=== PATIENT | male | born 1945 | race Caucasian/White ===

== ENCOUNTER 2018-12-05 19:59 | Observation (INO) | payer MEDICARE, OTHER ==
[~2018-12-05] VITALS: Ht 188 cm; Wt 104.3 kg
[~2018-12-05 19:59] MED LIST: ALL DAY ALLERGY10 M3 PO; ALLERGY MEDICAT25 MG PO; AMLODIPINE BESYL5 MG PO; ATENOLOL50 MG PO; ATORVASTATIN CA40 MG PO; AUGMENTIN 875-1 EACH PO; BACTRIM DS TAB1 EACH PO; BENADRYL25 MG PO; BISACODYL10 MG PR; CERAVE453 GM TOP; CETAPHIL226 GM TOP; CLINDAMYCIN HC300 MG PO; CLOBETASOL PROP50 ML TOP; CORTIZONE-1028 GM TOP; COUMADIN3 MG PO; COUMADIN4 MG PO; CYCLOBENZAPRINE10 MG PO; DOXEPIN HCL25 MG PO; FISH OIL 1,0001 EAC5 PO; FLEET ENEMA133 ML PR; FLUOXETINE HCL20 MG PO; FUROSEMIDE40 MG PO; GLIPIZIDE ER5 MG PO; HYDROCORTISONE59 ML TOP; HYDROXYZINE HCL50 MG PO; JANUVIA100 MG PO; KEFLEX500 MG PO; LAMOTRIGINE100 MG PO; LEVAQUIN500 MG PO; LOVASTATIN20 MG PO; LUBRICANT EYE D10 ML OU; MACULAR HEALTH1 EACH PO; MACULAR VITAMI1 EACH PO; MAGNESIUM CITR296 ML PO; MAPAP325 MG PO; MEDI-LAXX TABL1 EACH PO; MEDIHONEY15 ML TOP; METFORMIN HCL500 M1 PO; MILK OF MA400 MG/5 M PO; NORCO 10-325 T1 EACH PO; OMEGA-31000 MG PO; POLYETHYLENE GL17 GM PO; POTASSIUM CHLO10 ME2 PO; PREDNISONE20 MG PO; PROZAC20 MG PO; QUININE SULFAT324 MG PO; ROBITUSSIN COU237 M2 PO; TERBINAFINE HC250 MG PO; TIZANIDINE HCL2 MG PO; TOPROL XL25 MG PO; TRIAMCINOLONE A15 G1 TOP; VALIUM5 MG PO; VITAMIN D31000 UNIT PO; VITAMIN D5000 UNIT PO; WARFARIN SODIU7.5 MG PO; WARFARIN SODIUM5 MG PO; ZESTRIL10 MG PO; [UNRECOGNIZED DRUG - OTHER] TOP
[2018-12-05] MEDS ORDERED: ELIQUIS5 MG PO (20:14)
[2018-12-05] MEDS ORDERED: LANTUS SOL100 UNIT/1 SUB-Q (20:15)
--- NOTE | 2018-12-05 23:01 | EKG ---
[facility] [address] [facility] [place] [address] Signed Atrial flutter with variable AV block RSR' or QR pattern in V1 suggests right ventricular conduction delay Nonspecific ST abnormality Prolonged QT Abnormal ECG No previous ECGs available Confirmed by TEJAS SOLIZ MD ([id number]) on 12/05/2018 11:01:00 PM Electronically Signed By: TEJAS SOLIZ MD 12/05/18 2301 PATIENT NAME: MARCIA MORALES Electrocardiogram DATE OF : 47 PHYSICIAN: TEJAS SOLIZ MD REPORT #: [id number] REPORT IS CONFIDENTIAL AND NOT TO BE RELEASED WITHOUT AUTHORIZATION
--- NOTE | 2018-12-06 01:48 | NUR ---
PATIENT ARRIVED FROM ER SHORTLY BEFORE MIDNIGHT. PATIENT IS WHEELCHAIR BOUND. 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 PATIENT LIKES TO DO THINGS FOR HIMSELF MUCH POSSIBLE. COMMODE WILL NEED TO COME TO THE BED SIDE AND HE WILL NEED ASSISTANCE WITH A URINAL. PATIENT IS A+O, BUT HAS PROBLEMS WITH SHORT TERM MEMORY AND IS SLOW TO RESPOND AT TIMES WITH SPEACH. RIGHT ARM RESTRICTED FOR LAB AND B/P, AND RIGHT HAND CONTRACTURED. PATIENT NOW TRYING TO SLEEP. ON TELE#1 AND IN A FLUTTER WITH PVC'S IN THE 70'S AT THIS TIME. PATIENT ABLE TO TURN HIMSELF IN BED. PATIENT JUST HAD SKIN GRAFTS TO BOTH FEET YESTERDAY WERE DRESSED BY . NURSING IS NOT SUPPOSED TO DO ANYTHING WITH THE DRESSINGS. 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
--- NOTE | 2018-12-06 03:21 | NUR ---
PATIENT UP TO USE THE URNIAL, 2P ASSIST STAND BY. PATIENT STOOD UP BY BED SIDE TO USE URNIAL INDEPENDENTLY.PATIENT IS BACK IN BED.
--- NOTE | 2018-12-06 05:42 | NUR ---
PATIENT HAS SLEPT SINCE HIS ADMISSION WAS FINISHED, EXCEPT FOR HAVING TO STAND TWICE TO USE THE URINAL. PATIENT REMAINS IN A FLUTTER ON THE TELE, OTHER VS STABLE. IV NS CONTINUES TO INFUSE AT 50MLS/HR. PATIENT BACK IN BED WATCHING TV. PATIENT IS VERY INDEPENDENT AND WILL WANT TO TRY AND DO MOST THINGS ON HIS OWN AND DOES VERY WELL EVEN THOUGH HE IS VERY LIMITED ON HIS RIGHT SIDE AND DOES NOT WANT YOU TO TOUCH HIS RIGHT EXTREMETIES BECAUSE IT CAUSES HIM PAIN.
--- NOTE | 2018-12-06 07:26 | NUR ---
RECIEVED BEDSIDE REPORT FROM CANDI CABA. PT IS SLEEPING SOUNDLY, BREATHING EVEN AND UNLABORED. NEW SKIN GRAFT, DR MORTON IS FOLLOWING. VOIDING WELL.
--- NOTE | 2018-12-06 08:33 | NUR ---
PT'S SISTER ARRIVED DURING ASSESSMENT TO GIVE ADDITONAL BACKGROUND ON SKIN GRAFTS AND HISTORY. PT DID NOT HAVE ANY SYSTEMIC SEDATION DURING SKIN GRAFTS, LOCAL ONLY. SKIN GRAFT COMES FROM PLACENTAL TISSUE. PT'S SISTER REPORTED THAT DURING EPISODE YESTERDAY, PT COULD HEAR, BUT COULD NOT ANSWER QUESTIONS. HE COULD NOT KEEP EYES OPEN LONG ENOUGH TO VISUALLY PROCESS INFORMATION. PT'S SISTER EXPRESSED FRUSTRATION ABOUT THE LENGTH OF TIME IT TOOK TO ADMIT THE PT AND THE NUMBER OF TIMES QUESTIONS WERE ASKED (ASSESSMENT AND HISTORY). RN DID SERVICE RECOVERY MUCH POSSIBLE. FAMILY WAS HAPPY WITH THE CARE PROVIDED BY NOC AND DAY SHIFT RNS, JUST FUSTRATED BY THE COMPUTER ISSUES.
[2018-12-06] MEDS ORDERED: METOPROLOL SUCC25 MG PO (09:49)
--- NOTE | 2018-12-06 11:01 | NUR ---
CALLED REPORT [facility] WILL BE EXPECTING PT TO RETURN VIA WHEELCHAIR VAN.
--- NOTE | 2018-12-06 12:54 | NUR ---
PT DISCHARGE TEACHING COMPLETE. DISCUSSED FOLLOW UP, WHEN TO CALL THE DR, AND WHAT TO LOOK FOR. REPORT CALLED TO CANDI RINALDI AT [facility].
== END 2018-12-06 11:33 ==
LOC: ED 19:59 → MS 20:01
PROVIDERS: ADMIT Internal Medicine
DX: R41.82 Altered mental status, unspecified (principal); R00.1 Bradycardia, unspecified; I48.92 Unspecified atrial flutter; I73.9 Peripheral vascular disease, unspecified; I48.91 Unspecified atrial fibrillation; I10 Essential (primary) hypertension; E78.5 Hyperlipidemia, unspecified; I69.921 Dysphasia following unspecified cerebrovascular disease; I69.951 Hemiplegia and hemiparesis following unspecified cerebrovascular disease affecting right dominant side; L97.929 Non-pressure chronic ulcer of unspecified part of left lower leg with unspecified severity; L97.919 Non-pressure chronic ulcer of unspecified part of right lower leg with unspecified severity; Z66 Do not resuscitate; Z88.1 Allergy status to other antibiotic agents; Z88.8 Allergy status to other drugs, medicaments and biological substances; Z79.02 Long term (current) use of antithrombotics/antiplatelets; Z79.4 Long term (current) use of insulin; Z79.899 Other long term (current) drug therapy
CPT/HCPCS: 51701; 71045; 80053; 81001; 83735; 84484; 85025; 93005; 93010; 99285-25; G0378; J7030

== ENCOUNTER 2019-07-18 22:13 | Emergency (ER) | payer MEDICARE, OTHER ==
[~2019-07-18] VITALS: Ht 188 cm; Wt 104.3 kg
[~2019-07-18 22:13] MED LIST changes: +ELIQUIS5 MG PO; +LANTUS SOL100 UNIT/1 SUB-Q; +METOPROLOL SUCC25 MG PO
[2019-07-18] MEDS ORDERED: JANUVIA100 MG PO (22:40)
[2019-07-18] MEDS ORDERED: BENADRYL25 MG PO (23:31)
[2019-07-19] MEDS ORDERED: TRIAMCINOLONE A15 GM TOP (06:31)
== END 2019-07-18 23:41 | disposition home or self-care (01) ==
LOC: ED 22:13
DX: L29.9 Pruritus, unspecified (principal); I11.0 Hypertensive heart disease with heart failure; I50.9 Heart failure, unspecified; Z86.73 Personal history of transient ischemic attack (TIA), and cerebral infarction without residual deficits; Z88.8 Allergy status to other drugs, medicaments and biological substances; Z88.1 Allergy status to other antibiotic agents; Z79.899 Other long term (current) drug therapy; E78.5 Hyperlipidemia, unspecified; Z79.4 Long term (current) use of insulin
CPT/HCPCS: 99283; Q0163

== ENCOUNTER 2022-03-29 07:48 | Emergency (ER) | payer MEDICARE, OTHER ==
[~2022-03-29] VITALS: Ht 188 cm; Wt 93.1 kg
[~2022-03-29 07:48] MED LIST changes: +TRIAMCINOLONE A15 GM TOP
[2022-03-29] MEDS ORDERED: DIAZEPAM5 MG PO (08:31)
[2022-03-29] MEDS ORDERED: LASIX20 MG PO (08:32)
--- NOTE | 2022-03-30 09:52 | EKG ---
[facility] [address] [place] [address] Signed Atrial fibrillation with slow ventricular response Abnormal ECG When compared with ECG of 05-DEC-2018 20:03, Atrial fibrillation has replaced Atrial flutter Vent. rate has decreased BY 28 BPM RSR' pattern in V1 is no longer present QT has shortened Confirmed by GARRETT BINGHAM MD ([id number]) on 03/30/2022 9:52:39 AM Electronically Signed By: GARRETT BINGHAM MD 03/30/22 0952 PATIENT NAME: MARCIA MORALES Electrocardiogram DATE OF : 47 PHYSICIAN: GARRETT BINGHAM MD REPORT #: [id number] REPORT IS CONFIDENTIAL AND NOT TO BE RELEASED WITHOUT AUTHORIZATION
== END 2022-03-29 14:05 | disposition short-term general hospital (02) ==
LOC: ED 07:48
DX: S72.141A Displaced intertrochanteric fracture of right femur, initial encounter for closed fracture (principal); I48.91 Unspecified atrial fibrillation; I11.0 Hypertensive heart disease with heart failure; I50.9 Heart failure, unspecified; E78.5 Hyperlipidemia, unspecified; Z86.73 Personal history of transient ischemic attack (TIA), and cerebral infarction without residual deficits; Z88.1 Allergy status to other antibiotic agents; Z91.048 Other nonmedicinal substance allergy status; Z79.84 Long term (current) use of oral hypoglycemic drugs; Z79.899 Other long term (current) drug therapy; Z20.822 Contact with and (suspected) exposure to COVID-19; W18.30XA Fall on same level, unspecified, initial encounter
CPT/HCPCS: 36415; 71045; 73552; 73590; 73630; 80053; 81001; 85025; 87502; 93005; 93010; 96361; 96374; 96375; 99285-25; C9803; J2060; J2405; J3010; J7040; U0003

== ENCOUNTER 2022-04-13 15:53 | Inpatient (IN) | payer MEDICARE, OTHER ==
[~2022-04-13] VITALS: Ht 188 cm; Wt 92.0 kg
[~2022-04-13 15:53] MED LIST changes: +DIAZEPAM5 MG PO; +LASIX20 MG PO
--- OUTSIDE RECORDS SUMMARY | 2022-04-13 15:54 | XMS ---
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 Physician Splicing Machine Operator Automatic Current PHONE: Unknown JON ALVAREZ Nurse Practitioner Current PHONE: Unknown STEVE JENSEN Nurse Practitioner Heath MARTINEZ PHONE: [phone] DANDRE [facility] Current PHONE: Unknown LOUANN [facility] Current PHONE: [phone] Betty has no Care Guidelines for this patient. [place] V[facility] COUNT (12 MO.) 1 [facility] 2 [facility] TOTAL 3 NOTE: Visits indicate total known visits. ED/UCC VISIT TRACKING (12 MO.) 04/13/2022 15:54 [facility] [place] TYPE: Emergency COMPLAINT: - NAUSEA 03/29/2022 14:47 [facility] [place] TYPE: Emergency DIAGNOSES: - Unspecified fall, initial encounter - Fracture of unspecified part of neck of right femur, initial encounter for closed fracture - HIP FRACTURE 03/29/2022 07:48 [facility] [place] TYPE: Emergency COMPLAINT: - GLF DIAGNOSES: - Contact with and (suspected) exposure to COVID-19 - Allergy status to other antibiotic agents - casey saw operator (current) use of oral hypoglycemic drugs - Fall on same level, unspecified, initial encounter - Unspecified atrial fibrillation - Hypertensive heart disease with heart failure - Other long lines operator (current) drug therapy - Hyperlipidemia, unspecified - Other nonmedicinal substance allergy status - Heart failure, unspecified - Personal history of transient ischemic attack (TIA), and cerebral infarction without residual deficits - Displaced intertrochanteric fracture of right femur, initial encounter for closed fracture INPATIENT VISIT TRACKING (12 MO.) 03/29/2022 14:47 [facility] [place] TYPE: Medical Surgical DIAGNOSES: - Fracture of unspecified part of neck of right femur, initial encounter for closed fracture - Unspecified fall, initial encounter [email or web address]
--- NOTE | 2022-04-13 21:50 | NUR ---
pt arived via stretcher from ed at this time, his sister meera his poa. pt is alert non verbal at this time.
--- NOTE | 2022-04-13 23:35 | NUR ---
CALLED TO REPORT PT HAVING INCREASED RESP RATE UP TO 40 BPM. HE IS TRY TO VERBALIZE BUT IS UNCLEAR, HE IS RESTLESS, GRIMACING, AGITATED. GAVE ORDER FOR FENTANYL 12.5-25MCG IV PRN START WITH 12.5MCG. WILL CONTINUE TO MONITOR.
--- NOTE | 2022-04-14 | NUR ---
WHEN CALLED, UPDATED ON PT CURRENT STATUS, INCREASED WORK OF BREATHING CONCERNS ABOUT RESP FAILURE. NEW ORDERS
--- NOTE | 2022-04-14 00:21 | NUR ---
PT ADMINISTERED ANOHTER 25MCG PER NEW ORDERS FROM DR.REDDY LEYVA, ALSO HAVE NEW ORDER FOR ATIVAN FOR ANXIETY AND AGITTION.
--- NOTE | 2022-04-14 00:53 | NUR ---
CALLED TO UPDATE OF PT CURRENT STATUS, AND CRITICAL LABS
--- NOTE | 2022-04-14 01:49 | NUR ---
PT RESTING IN BED, HE IS LESS RESTLESS AT THIS TIME, HE CONTINUES TO ELEVATED RESP RATE OF 25-30 BPM, HE DESATURATED TO 87% ON ROOM AIR NOW ON 2L OXYGEN N.C. AT THIS TIME.
--- NOTE | 2022-04-14 02:30 | NUR ---
ROUNDING ON PT, HE GAVE NEW ORDERS AND TALKED WITH THE SISTER AND POA LEANDER MONSALVE AT BEDSIDE. UPDATED ON LOW URINE OUT AT THIS TIME ONLY 20ML OVER LAST TWO HOURS.
--- NOTE | 2022-04-14 03:33 | NUR ---
kayexelate kwan administration device removed from rectum, pt has large amount of stool medication mix in depends, pt cleaned barrier cream applied, pt has rash and open abrasions, and decub area on buttocks, bloods when wiped. pt repositioned, he is noted to be more relaxed, no grimace at this time.
--- NOTE | 2022-04-14 05:13 | NUR ---
PT CHANGE OF LARGE LIQUID INCONT OF STOOL, BARRIER CREAM APPLIED. PT'S SISTER AT BEDSIDE. PT REPOSITIONED TO LEFT SIDE, ON ASSESSMENT HE IS MORE RELAXED WHILE POSITIONED OF HIS RIGHT SIDE AND WEIGHT OFF BUTTOCKS. WARM BLANKET APPLIED
--- NOTE | 2022-04-14 06:34 | NUR ---
PT RESTING IN BED, RELAXED POSITION. TALKED WITH LEANDER MONSALVE PT'S SISTER AND POA IN REGARDS TO PT AM LABS AND CONTINUED TREATMENT PLAN. CURRENTLY THERE IS NOT KAYEXELATE AVILABLE FOR 0600 DOSE. DOUBLING MACHINE OPERATOR CANDI MALAGON AWARE. NO NEW CONCERNS THIS AM, URINE OUT IS INSUFFICIENT, B/P SOFT, BLOOD SUGAR ELEVATED HAS BEEN UPDATED TO THESE ISSUES OVER SHIFT WELL CALLED WITH CRITICAL VALUES.
--- NOTE | 2022-04-14 08:18 | NUR ---
IN WITH PT FOR MORNING ASSESSMENT AND TO GIVE KAYEXALATE THAT WAS DUE. PT MOANS WITH ANY SORT OF MOVEMENT BUT DOES NOT RESPOND PURPOSEFULLY. KAYEXALATE GIVEN PER RECTUM, PT TOLERATES. DUE TO PTS GRIMACE AND MOAN, MEDICATED WITH 50 MCG OF FENTANYL. [facility] CARE COMPLETED. PT IS COLD WITH MOTTLED SKIN TO KNEES AND ELBOWS. BLANKETS REAPPLIED.
--- NOTE | 2022-04-14 09:36 | NUR ---
PTS BLOOD PRESSURE TRENDING DOWN. IN TO TAKE A MANUAL BLOOD PRESSURE. 78/38. CALL PLACED TO DR BINGHAM TO NOTIFY OF DECREASE IN URINE OUTPUT, DECREASE IN BLOOD PRESSURE AND INCREASE IN RESPIRATORY RATE. DR BINGHAM STATES THAT BECAUSE PTS BLOOD PRESSURE IS LOW HE WOULD LIKE HIM STARTED ON NOREPI SO THAT PT CAN SAFELY BE GIVEN DOSES OF ATIVAN FOR COMFORT. PTS SISTER IN ROOM IS OKAY WITH THAT PLAN. NOREPI STARTED AT 4 MCG/MIN WITH BLOOD PRESSURE OF 77/48(56). 1 MG OF ATIVAL GIVEN IV WELL.
--- NOTE | 2022-04-14 09:45 | NUR ---
REPORT RECIEVED FROM FRANCO CHRISTOPHER. PATIENT WAS STARTED ON LEVOPHED PRIOR TO THIS RN ARRIVING. FRANCO UPDATED MD BINGHAM OF PATIENTS CONDITION AND LIMITED URINE OUTPUT. PATIENT RESTING IN BED WITH PATIENTS SISTER AT THE BEDSIDE. PER REPORT PATIENT HAS A RIGHT SIDE GAVE. LIMITED URINE OUTPUT. PATIENT HAS BEEN APHASIC SINCE ADMIT. PATIENT RESTING COMFORTABLE AT THIS TIME.
--- NOTE | 2022-04-14 09:50 | NUR ---
WHILE HANGING NOREPI, PT NOTED TO HAVE POSSIBLE RIGHT SIDE GAZE. PT DOES NOT RESPOND TO VOICE. DOES RESPOND TO TOUCH, BUT DOES NOT CHANGE GAZE. REPORT GIVEN TO RUPA.
--- NOTE | 2022-04-14 10:40 | NUR ---
PATIENT RESTLESS AND NOTED TO HAVE A BM. PRN PAIN MEDICATION GIVEN TO ASSIST PATIENT WITH CLEANING AND TURNING. PATIENT TOLERATED WELL. OINTMENTS APPLIED. PATIENTS SISTER AT THE BEDSIDE AND UPDATED ON PLAN OF CARE. MD BINGHAM UPDATED PRIOR IN SHIFT OF PATIENTS CONDITION. PATIENT IS NOW ON LEVOPHED. WILL CONTINUE TO TITRATE NEEDED. NO OTHER NEEDS AT THIS TIME. WILL CONTINUE TO CLOSELY MONITOR.
--- NOTE | 2022-04-14 11:00 | NUR ---
MD BINGHAM ARRIVED TO UNIT. UPDATED ON PATIENTS CONDITION. PATIENT RESTING IN BED. PATIENT CONTINUING TO GO UP ON LEVOPHED GTT. MD BINGHAM IN TO SEE PATIENT AND TALK WITH PATIENTS SISTER.
--- NOTE | 2022-04-14 12:42 | NUR ---
IN TO GIVE PT HIS KAYEXALATE ENEMA. PTS BED SATURATED WTIH STOOL. BEDDING AND ATTENDS CHANGED. PT APPEARS TO BE QUITE PAINFUL WITH MOVEMENT. BLOOD PRESSURE 81/47 (58). TITRATED NOREPI UP TO 25 MCG/MIN AND GAVE PT 100 MCG OF FENTANYL AND 1 MG OF IV ATIVAN. PTS BLOOD PRESSURE REMAINS 83/49(61)
--- NOTE | 2022-04-14 13:00 | NUR ---
STAFF IN TO GIVE MEDICATIONS AND REPOSITION PATIENT.
--- NOTE | 2022-04-14 14:30 | NUR ---
PATIENT REPOSITIONED WITH 2 STAFF SUPPORT. PATIENT RESTING IN BED. PRN MEDICATIONS GIVEN FOR COMFORT. THIS RN IN AT PATIENTS BEDSIDE EVERY 15-30 MINUTES FOR MEDICATION INTERVENTIONS. PATIENTS SISTER HAS REMAINED AT THE BEDSIDE. FOOD PROVIDED FOR SISTER. PATIENT HAS CONTINUED TO BE APHASIC THROUGHOUT THE DAY AND UNABLE TO COMMUNICATE WITH STAFF. PATIENT DOES OCCASIONALLY OPEN HIS EYES AND LOOK AROUND. PER MD LEAVE LEG WRAP IN PLACE. NO OTHER NEEDS AT THIS TIME. WILL CONTINUE TO CLOSELY MONITOR.
--- NOTE | 2022-04-14 16:36 | NUR ---
I WAS CALLED AND ADVISED THAT FAMILY WAS REQUESTING PRAYER. PT WAS NONVERBAL WHEN I ARRIVED. SISTER WAS PRESENT AND APPEARED CALM. SHE REQUESTED I PRAY WITH PT. PT RESPNDED VERBALLY AT THE END OF THE PRAYER. PROVIDED SPIRITUAL CARE TO SISTER.
--- NOTE | 2022-04-14 17:36 | EKG ---
[facility] [address] [facility] [place] [address] Signed Sinus bradycardia Nonspecific ST abnormality Prolonged QT Abnormal ECG When compared with ECG of 29-MAR-2022 09:23, Sinus rhythm has replaced Atrial fibrillation QRS duration has increased QT has lengthened Confirmed by GARRETT BINGHAM MD ([id number]) on 04/14/2022 5:36:31 PM Electronically Signed By: GARRETT BINGHAM MD 04/14/22 1736 PATIENT NAME: MARCIA MORALES Electrocardiogram DATE OF : 47 PHYSICIAN: GARRETT BINGHAM MD REPORT #: [id number] REPORT IS CONFIDENTIAL AND NOT TO BE RELEASED WITHOUT AUTHORIZATION
--- NOTE | 2022-04-14 17:49 | NUR ---
PATIENT CLEANED AFTER RECTAL MEDICATIONS ADMINISTERED. BEDDING CHANGED. PATIENT RESTING IN BED AT THIS TIME. PRN MEDICATIONS GIVEN FOR COMFORT. PATIENT IS RESTING AT THIS TIME. PATIENTS HR IS SLOWLY TRENDING UP THROUGHOUT THE DAY. PATIENT ON 32 OF LEVOPHED AT THIS TIME. VASOPRESSIN GTT IS AT A CONTINUOUS RATE. PATIENTS BLOOD SUGAR IS CHECKED EVERY HOUR AND TITRATED NEEDED. PATIENTS LABS DONE. MD BINGHAM NOTIFIED OF CRITICAL LABS, SEE EMARBreann ABRAHAM UPDATED ON CONTINUED LOW URINE OUTPUT. PATIENTS SISTER AT THE BEDSIDE AND DENIES ANY NEEDS AT THIS TIME. WILL CONTINUE TO CLOSELY MONITOR.
--- NOTE | 2022-04-14 18:40 | NUR ---
REVIEWED PLAN OF CARE. WITH PATIENTS SISTER. UPDATED ON CARES. PATIENTS SON SHOULD BE HERE TOMMORW AROUND 1PM. UPDATED MD BINGHAM. WILL CONTINUE TO CLOSELY MONITOR.
--- NOTE | 2022-04-14 18:43 | NUR ---
MD BINGHAM NOTIFIED OF LABS AND RE-RUN LABS. PATIENTS BLOOD SUGAR WAS ELEVATED ON LABS D/T THE LEVOPHED AND VASPOPRESSIN CONTINUING DURING LAB DRAW. THIS RN IS DOING EVERY 1 HOUR BLOOD SUGARS FOR PATIENT. WILL CONTINUE TO CLOSELY MONITOR.
--- NOTE | 2022-04-14 19:06 | NUR ---
UPDATED MD BINGHAM THAT PATIENTS BLOOD SUGAR IS 245. PER MD STAY IN SAME COLUMN AND NOTIFY CLINICAL LABORATORY AIDES TEACHER STAFF TO FOLLOW TREND.
--- NOTE | 2022-04-14 19:30 | NUR ---
REPORT RECEIVED FORM NIA CHRISTOPHER. IN TO LOOK AT PT, PT IS RESTING IN BED, EYES OPEN AT TIMES. SISTER IN ROOM, PLAN OF CARE DISCUSSED WITH SISTER. PT APPEARS COMFORTABLE AT THIS TIME.
--- NOTE | 2022-04-14 21:00 | NUR ---
PT HAS HAD 3 EPISODES OF INCONTINENT STOOL SINCE SHIFT CHANGE. GIVEN 100MCG IV FENTANYL FOR PAIN. TITRATING INSULIN DRIP PER PROTOCOL, LEVOPHED AND VASOPRESSIN HAVE NOT NEEDED TO BE TITRATED AT THIS TIME.
--- NOTE | 2022-04-15 | NUR ---
HAVE BEGUN TITRATING LEVOPHED DRIP DOWN.
--- NOTE | 2022-04-15 01:49 | NUR ---
DR BINGHAM CALLED UNIT FOR UPDATE, ORDER TO KEEP TOTAL IVF AT 150ML/HR.
--- NOTE | 2022-04-15 02:25 | NUR ---
PT INC STOOL, ATTENDS CHANGED AND PT REPOSITIONED. LEVOPHED DRIP CONTINUES TO BE TITRATED DOWNWARDS.
--- NOTE | 2022-04-15 05:15 | NUR ---
PT SEEMS TO BE MOANING SOME, REPOSITIONED, ATTENDS CHANGED, LABS DRAWN. 100MCG IV FENTANYL GIVEN FOR PT COMFORT.
--- NOTE | 2022-04-15 08:05 | NUR ---
PT HAS HAD LEVOPHED DRIP TITRATED DOWN TO 6MCG/MIN, CONTINUES ON VASOPRESSIN DRIP AND INSULIN DRIP PER PROTOCOL WITH BLOOD SUGARS IN THE 200 RANGE. HAS HAD APPROX 6 LOOSE BOWEL MOVMENTS THROUGH THE NIGHT, JERICA AREA EXCORIATED, BARRIER CREAM APPLIED, AWAITING POWDER FROM FORENSIC SOCIAL WORKER. URINE OUTPUT HAS INCREASED QUITE A BIT THROUGH THE NIGHT WELL. PT HAS BECOME MORE RESPONSIVE THROUGH THE NIGHT, NOW LOOKING AROUND MORE AND APPEARS TO BE ATTEMPTING TO COMMUNICATE, DOES MOUTH THE WORD "NO" TO HIS SISTER AT ONE POINT. PT WAS GIVEN 100MCG IV FENTANYL X2 THROUGH THE NIGHT FOR PAIN. HR 80'S, EKG JUST DONE SHOWS AFLUTTER, LAST BP 107/64 MAP (76). SISTER HAS REMAINED IN ROOM THROUGH THE NIGHT. AWAITING SON TO ARRIVE THIS AFTERNOON.
--- NOTE | 2022-04-15 08:40 | NUR ---
CARE OF PATIENT RESUMED BY THIS RN. PT RESTING IN BED UPON INITIAL ASSESSMENT WITH EYES OPEN, TRACKING STAFF IN ROOM SOME, BUT NOT INTERACTIVE. PT'S SISTER LEANDER MONSALVE IN ROOM AND ATTENTIVE TO PATIENT. SHE STATES SHE FEELS HE HAS HAD A BM. PT WAS CHANGED AND NEW ATTENDS AND NYSTATIN POWDER APPLIED TO BILATERAL GROIN AREA, AND BARRIER CREAM APPLIED TO BOTTOM. PT CURRENTLY ON LEVOPHED AT 6 MCG/MIN, BUT THIS WAS INCREASED TO 8 MCG/MIN DUE TO LAST BP BEING 81/51 (58). SODIUM BICARB INFUSING AT 110 ML/HR, VASOPRESSING INFUSING AT 0.3 UNITS/HR AND INSULIN CURRENTLY AT 1.2 UNITS/HR. CBG AT 0800 WAS 178. EKG DONE FOR RHYTHM CHANGE IT APPEARS PT IS NOW IN AFLUTTER, HR 70-80s. PLAN OF CARE DISCUSSED WITH PATIENT AND HIS SISTER. PT'S SON MARITZA SHOULD BE ARRIVING TODAY FROM OUT OF TOWN. MIDLINE/PICC LINE TO BE POTENTIALLY PLACED TODAY.
--- NOTE | 2022-04-15 10:36 | NUR ---
PATIENT TURNED TO LEFT SIDE AT THIS TIME. LEVOPHED NOW INFUSING AT 5 MCG/MIN AND VASOPRESSIN IS AT 0.02 UNITS/HR. PT'S SISTER REMAINS IN ROOM AND ATTENTIVE TO PATIENT. DISCUSSED WITH PATIENT AND HIS SISTER THAT A PICC LINE WILL HAPPEN TODAY. LAST BP 95/59 (70). CONTINUE TO TITRATE OFF TOLERATED.
--- NOTE | 2022-04-15 11:39 | NUR ---
DR. BINGHAM IN ROOM TO SEE PATIENT AT THIS TIME. PLAN OF CARE BEING DISCUSSED. PT REMAINS NON VERBAL BUT DOES SLIGHTLY NOD HEAD YES/NO TO THINGS. PT REMAINS ON ROOOM AIR AND SP02 IS CURRENTLY 91%. PT BEING REPOSITIONED TO SUPINE FOR PICC LINE PLACEMENT. URINE CONTINUES TO BE MUCH IMPROVED FROM YESTERDAY. LEG WRAP ON LEFT LEG D/C PER DR. BINGHAM. PT HAS A CHRONIC WOUND ON INNER LEFT ANKLE BONE THAT IS WELL HEALING AT THIS TIME, NO OPEN AREA. VASOPRESSIN NOW AT 0.1 UNITS/HR PER DR. BINGHAM AND WILL BE TURNED OFF AT 1210.
--- NOTE | 2022-04-15 14:22 | NUR ---
EMEMA COMPLETE. ANTIFUGAL POWDER APPLIED TO RIGHT AXILLARY AREA AND GROIN AREA. PATIENT POSITIONED ON LEFT SIDE. SISTER AND SON ARE AT BEDSIDE
--- NOTE | 2022-04-15 14:51 | NUR ---
PICC INSERTION NOTE: ASKED BY DR. BINGHAM TO EVALUATE PATIENT FOR POTENTIAL PICC LINE PLACEMENT. AFTER REVIEWING THE CHART AND DISCUSSING WITH PATIENT'S SISTER, PATIENT IS UNABLE TO COMMUNICATE AT THIS TIME DUE TO CONDITION, NO ABSOLUTE CONTRAINDICATIONS WERE IDENTIFIED. PATIENT'S SISTER SIGNED CONSENT FORM FOR PATIENT FOR PICC LINE. PATIENT'S RIGHT ARM WAS EVALUATED FIRST, THIS BEING HIS ARM THAT WAS AFFECTED MOST BY HIS CVA THAT WAS MANY YEARS AGO. PT'S BASILIC AND BRACHIAL VEINS WERE EASILY IDENTIFIED, WITH THE BASILIC BEING THE BEST CHOICE. AFTER PREPPING THE PATIENT'S ARM FOLLOWING CDC RECOMMENDED STERILE TECHNIQUE, THE PATIENT'S BASILIC WAS ACCESSED EASILY ON THE SECOND ATTEMPT, AND DARK, NON PULSATILE BLOOD WAS RETURNED. THIS BLOOD RETURN WAS NOT BRISK USUALLY SEEN, AND A FLUSH WAS ATTACHED TO CATHETER TIP. IV SITE FLUSHED EASILY AND THEN PULLED BACK BLOOD WITH EASE. GUIDEWIRE WAS THEN ADVANCED EASILY INTO THE VEIN, FOLLOWED BY THE INTRODUCER OVER THE GUIDEWIRE, THEN AFTER REMOVING INNER CANNULA OF INTRODUCER, THE PICC LINE WAS ADVANCED WITH EASE. [employer] TIP MAGNET WAS USED TO LOCATE THE TIP WHILE THE CATHETER WAS ADVANCED, AND SHOWED OPTIMAL PLACEMENT INTO THE CENTRAL VASCULATURE. 3CG TECHNOLOGY WAS UTILIZED, BUT THE PATIENT REMAINS IN AFLUTTER AND INVERSION OF P WAVES WAS NOT ABLE TO BE SEEN. PICC WAS LEFT WITH 3 CM EXPOSED AND A CHEST XRAY TAKEN. FIRST CHEST XRAY SHOWED THE PICC TO BE TOO DEEP, AND IT WAS PULLED BACK 2 CM. SECOND CHEST XRAY TAKEN, AND PATIENT NOW HAS 5 CM EXPOSED. STERILE DRESSING WAS APPLIED. BOTH LUMENS OF PICC FLUSHING AND ASPIRATING BLOOD EASILY. DR. BINGHAM LOOKED AT CHEST XRAY AND GAVE APPROVAL FOR PICC LINE TO BE USED. PT TOLERATED PROCEDURE WELL. EDUCATION MATERIAL LEFT IN PATIENT'S ROOM FOR PATIENT'S SISTER, AND ENCOURAGED TO ASK QUESTIONS THEY ARISE.
--- NOTE | 2022-04-15 15:12 | NUR ---
DR. BINGHAM IN ROOM AT THIS TIME DISCUSSING PATIENT'S CONDITION WITH HIS SON, WHO ARRIVED AROUND 1330, AND WITH PATIENT'S SISTER. PT CURRENTLY ON 5 MCG/MIN OF LEVOPHED, AND SODIUM BICARB AT 130 ML/HR. PT REMAINS ON AFIB/FLUTTER 70-80s. PT RECENTLY HAD KAYEXELATE ENEMA BUT HAS NOT HAD ANY FURTHER BMs YET. CONTINUE TO MONITOR CLOSELY.
--- NOTE | 2022-04-15 16:34 | NUR ---
PATIENT HAD INCONTINENCE OF LARGE LIQUID BROWN BM AFTER KAYEXELATE ENEMA WAS GIVEN EARLIER. THIS WAS CHANGED AND BARRIER CREAM REAPPLIED, NYSTATIN POWDER TO GROIN AREA, AND THOROUGH CATH CARE PROVIDED. PT'S LINENS WERE CHANGED WELL. PT TOLERATED FAIRLY WELL, BUT DOES SEEM UNCOMFORTABLE WHEN WE ARE MOVING/CHANGING HIM. PT'S SON MARITZA NOW BACK IN ROOM AND RESTING - WARM BLANKETS, WATER, AND PILLOWS PROVIDED. PT'S SISTER HAS LEFT AND STATES SHE WILL RETURN AT 0000 TO SEE PATIENT AGAIN. ASSESSMENT COMPLETE. PT ON 1 L NC AND SP02 IS 97%. CONTINUE TO MONITOR.
[2022-04-15] MEDS ORDERED: VITAMIN B-121000 MC1 PO (17:10)
[2022-04-15] MEDS ORDERED: JARDIANCE25 MG PO (17:11)
[2022-04-15] MEDS ORDERED: TRULICITY4.5 MG/0.5 SUB-Q (17:12)
[2022-04-15] MEDS ORDERED: FLUOXETINE HCL40 MG PO (17:13)
[2022-04-15] MEDS ORDERED: LISINOPRIL20 MG PO (17:14)
[2022-04-15] MEDS ORDERED: MICONAZOLE NITR15 GM TOP (17:15)
--- NOTE | 2022-04-15 18:15 | NUR ---
PATIENT TURNED AND REPOSITIONED AGAIN AT 1800. 2ND LARGE LIQUID BM NOTED IN ATTENDS WHICH WAS CHANGED. BARRIER CREAM AND A&D TO BUTTOCKS - NYSTATIN TO GROIN. PT MADE A TOTAL OF 1225 ML OF URINE FOR THIS SHIFT OF URINE. PT'S SONREMAINS IN ROOM. LEVOPHED CURRENTLY AT 3 MCG/MIN. CBG CHECKS REMAIN AT Q4 HRS, NEXT DUE AT 2200. PT REMAINS IN AFLUTTER.
--- NOTE | 2022-04-15 20:45 | NUR ---
blood drawn for 2000 labs at this time. pt resting quietly in bed eyes closed, rr 18 bpm. no distress noted, his son cherise is resting in recliner beside the bed.
--- NOTE | 2022-04-15 21:30 | NUR ---
PT CLEANED FOR LARGE INCONT OF STOOL, HIS SON IS OUT OF ROOM TO MAKE PHONE CALLS. RX DESITIN POWDER AND BARRIER CREAM COVERED OVER ALL AREAS OF BUTTOCKS AND JERICA SCROTAL AREA, SKIN SHOWS SOME IMPROVEMENT FROM ADMIT, LESS RED.
--- NOTE | 2022-04-15 21:34 | NUR ---
GIGI BINGHAM NOTIFIED OF CRITICAL LAB. CALCIUM OF 6.4. NEW FLUID ORDERS RECEIVED.
--- NOTE | 2022-04-16 00:49 | NUR ---
PT RESTING IN BED, RELAXED POSITION. PT NOTED TO HAVE INTERMITTEN HICCUPS, RESOLVES IN A FEW MINUTES. PT IS NOTED TO HAVE OCCASSIONAL COUGH THAT IS MOIST, SECRETIONS IN UPPER AIRWAY THAT HE IS ABLE TO MOVE WITH COUGH. SISTER LEANDER MONSALVE RESTING ON COUCH IN PT'S ROOM.
--- NOTE | 2022-04-16 04:15 | NUR ---
PT RESTING QUIETLY IN BED, NO DISTRESS NOTED, V/S STABLE WITH 4MCG/MIN LEVOPHED INFUSING. NO NEW CONCERNS AT THIS TIME.
--- NOTE | 2022-04-16 08:24 | NUR ---
IN PATIENT'S ROOM FOR ASSESSMENT. PT'S SISTER AND SON IN ROOM, UPDATE PROVIDED. PT ON 5 MCG/MIN OF LEVOPHED AND THIS WAS TURNED DOWN TO 4 MCG/MIN AFTER BP READS 102/51 (66). IV SITE D/C LEFT POSTERIOR FOREARM. PT REMAINS IN AFLUTTER 60s. IVF CONTINUE AT 125 ML/HR. HEEL PROTECTORS ON. PT ON ROOM AND SP02 IS 93%. LUNGS ARE CLEAR IN UPPER ANTERIOR LOBES, DIM IN BASES. PT SEEMS RESTFUL. PT AWAKENS EASILY TO VOICE, TRACKS WITH HIS EYES, BUT DOES NOT FOLLOW ANY COMMANDS AT THIS TIME. PUPILS EQUAL BILATERALLY AND REACTIVE TO LIGHT. [facility] DRAINING CLEAR YELLOW URINE. WILL CONTINUE TO MONITOR CLOSELY.
--- NOTE | 2022-04-16 08:30 | NUR ---
SPOKE WITH PATIENT SISTER LEANDER MONSALVE AND SON MARITZA WHO ARE AT THE BEDSIDE. FAMILY STATES THAT PATIENT IS LOOKING MUCH BETTER TODAY. PATIENT SISTER STATES PATIENT IS CURRENTLY AT [facility] FOR PT FOLLOWING A HIP FRACTURE. PATIENT SON AND SISTER WOULD LIKE THE PATIENT NOT TO RETURN TO [facility] IF ABLE. DISCUSSED OPTIONS FOR PLACEMENT TO A DIFFERENT SNF FACILITY OR POSSIBLY BACK TO [facility] IF POSSIBLE. PATIENT FAMILY WOULD LIKE TO SEE IF HE CONTINUES TO IMPROVE OVER THE NEXT 24 HOURS BEFORE CONTACTING [facility]. NO FURTHER NEEDS FROM THE FAMILY AT THIS TIME, WILL CONTINUE TO CHECK ON PATIENT DURING HIS STAY.
--- NOTE | 2022-04-16 10:51 | NUR ---
PATIENT REPOSITIONED TO RIGTH SIDE AND POSITIONED WITH PILLOWS BEHIND BACK. NEW ATTENDS PLACED - PT WAS CLEAN OF BM BUT DID HAVE SOME RESIDUAL. DESITIN AND A&D APPLIED LIBERALLY TO BUTTOCKS, NYSTATIN POWDER TO INNER GROIN AREA. PT'S FAMILY REMAINS IN ROOM. LEVOPHED REMAINS ON AT 2 MCG/MIN. URINE EMPTIED AT THIS TIME FOR 350 ML. IV ZOSYN INFUSING, AND D5 NS INFUSING WELL. CONTINUE TO MONITOR.
--- NOTE | 2022-04-16 11:17 | NUR ---
DR. BINGHAM IN ROOM TO SEE PATIENT. LEVOPHED TITRATED BACK UP TO 4 MCG/MIN DUE TO LOWER BPs. PLAN OF CARE BEING DISCUSSED WITH PATIENT'S FAMILY IN ROOM. CONTINUE TO MONITOR CLOSELY.
--- NOTE | 2022-04-16 11:28 | NUR ---
PATIENT WILL RECEIVE BLOOD TRANSFUSION TODAY. PT'S SISTER SIGNS CONSENT FORM FOR THIS. BLOOD TO BE DRAWN FROM PICC.
--- NOTE | 2022-04-16 12:51 | NUR ---
BLOOD TRANSFUSION STARTED AT 1248 PER ORDER. FIRST 15 MINUTES OF BLOOD STARTED AT 120 ML/HR TO INFUSE 30 ML OF BLOOD. INFUSION GOING THROUGH PICC LINE WITHOUT DIFFICULTY. OTHER IVF ON HOLD WHILE TRANFUSION OCCURING. LEVOPHED INFUSING AT 6 MCG/MIN STILL AT THIS TIME. WILL CONTINUE TO MONITOR CLOSELY.
--- NOTE | 2022-04-16 13:04 | NUR ---
PT TOLERATED FIRST 15 MIN OF BLOOD W/O COMPLICATION - BLOOD NOW INFUSING AT 125 ML/HR. PT'S SON MARITZA REMAINS IN ROOM.
--- NOTE | 2022-04-16 14:42 | NUR ---
BEDBATH GIVEN, FAIRBANKS CARE PROVIDED. LINEN GOWN AND BRIEF CHANGE. POWDER, A&D, AND DESITN APPLIED WHERE NEEDED IN JERICA AREA. PATIENT REPOSITIONED ONTO LEFT SIDE. CALL LIGHT IN EASY REACH. SON BACK IN ROOM AT THIS TIME.
--- NOTE | 2022-04-16 16:00 | NUR ---
ASSESSMENT COMPLETE. PT REPOSITIONED. BED BATH GIVEN WITH STORE COORDINATOR AND THIS RN AROUND THIS TIME. PT TOLERATED FAIRLY WELL, BUT IS UNCOMFORTABLE WITH BEING MOVED SOME. HEEL PROTECTORS REMAIN ON. LEVOPHED CONTINUES TO BE OFF AT THIS TIME. PT HAS BEEN MORE ALERT AND RESPONSIVE THIS AFTERNOON, ESPEICALLY TO HIS SON MARITZA. CONTINUE TO MONITOR.
--- NOTE | 2022-04-16 18:01 | EKG ---
[facility] [address] [place] [address] Signed Atrial flutter with variable AV block ST \T\ T wave abnormality, consider inferior ischemia Abnormal ECG When compared with ECG of 13-APR-2022 16:59, Atrial flutter has replaced Sinus rhythm Vent. rate has increased BY 35 BPM QRS duration has decreased ST now depressed in Inferior leads T wave inversion now evident in Inferior leads Nonspecific T wave abnormality now evident in Anterior leads Confirmed by GARRETT BINGHAM MD ([id number]) on 04/16/2022 6:00:56 PM Electronically Signed By: GARRETT BINGHAM MD 04/16/221800 PATIENT NAME: MARCIA MORALES Electrocardiogram DATE OF : 47 PHYSICIAN: GARRETT BINGHAM MD REPORT #: [id number] REPORT IS CONFIDENTIAL AND NOT TO BE RELEASED WITHOUT AUTHORIZATION
--- NOTE | 2022-04-16 18:28 | NUR ---
LEVOPHED WAS ABLE TO BE TITRATED OFF FROM AROND [id number], BUT THEN WAS TURNED BACK ON AT 4 MCG/MIN, TURNED DOWN TO 2 MCG/MIN AT 1815. WILL CONTINUE TO MONITOR. PT RESTING COMFORTABLY. IVF CONTINUE AT 125 ML/HR.
--- NOTE | 2022-04-16 20:43 | NUR ---
PT RESTIGN IN BED RELAXED POSITION, HICCUPS NOTED AT THIS TIME, PT'S SON MARITZA IS AT BEDSIDE, REVIEWED LABS, ASSESSMENT DONE URINE NOTED 400ML CLEAR YELLOW URINE IN FAIRBANKS COLECTION BAG. PT HAD LEVOPHED DRIP ON STANDBY, MONITOR CLOSE. NO NEW CONCERNS AT THIS TIME
--- NOTE | 2022-04-16 22:47 | NUR ---
CALLED IN REGARDS TO PT PAIN WITH ACTIVITY AND REPOSITIONING, DISCUSSED PAIN MANAGEMENT PLAN TO BALANCE B/P, LEVOPHED REMAINS ON STANDBY. 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 ALSO RECENT RIGHT HIP SURGERY POST PINNING.
--- NOTE | 2022-04-17 00:31 | NUR ---
ROUNDING IN PT ROOM FOR 0000, BLOOD DRAW, ALL INFUSIONS STOPPED, WASTED BLOOD 8ML AND THEN PULLED 5ML FOR LAB BMP. BRISK BLOOD RETURN, FLUSHED WITH 20ML NS AND THEN STARTED IV INFUSING WITH ABX. NO OTHER CONCERNS AT THIS TIME, PT'S SISTER IS RESTING ON THE COUCH.
--- NOTE | 2022-04-17 05:59 | NUR ---
pt repositioned, cleaned up of incont of large stool, liquid, he tolerated rolling in bed better this am, he noted to grmace and cry out when wiped to clean buttock and scrotal area due to raw open areas. pt now calm and relaxed. sister samuel houston at bedside, blood sent for am labs.
--- NOTE | 2022-04-17 08:10 | NUR ---
STITCHER STANDARD MACHINE. PATIENT RESTING IN BED COMFORTABLY. POSTION CHANGED TO SUPINE, MOUTH CARE COMPLETED. SISTER AND SON AT BEDSIDE. PATIENT DOES NOT APPEAR TO BE IN PAIN PER FACES SCALE. PERSONAL ITEMS AND CALL LIGHT WITHIN REACH, BUT IS GENERALLY USED BY FAMILY INSTEAD OF PATIENT FOR NEEDS. NO FURTHER NEEDS AT THIS TIME.
--- NOTE | 2022-04-17 09:00 | NUR ---
Spoke with pt's son, Aly. He states he aunt has gone home to sleep. She is the POA, but they do not want pt to return to [facility]. Let them know I can check if [facility] has a bed open as they are the only [facility] that take pt's requiring a 2 person assist or a ammy. He would still be considered above [facility] level of care as he is full assist. Per son, pt is unable to feed self or provide any self care. He is also a heavy lift. Son requests I contact [facility] to check for bed availability. Texted Summer and they have one bed open. Will send chart.
--- NOTE | 2022-04-17 09:06 | NUR ---
Patient sat up to 45 degrees in bed supine for nursing bedside swallow test. Patient continues to be drowsy; not able to follow commands or open eyes without stimulation. Bedside swallow test deferred until patient is more alert and able to follow commands.
--- NOTE | 2022-04-17 10:22 | NUR ---
PT evaluated patient without much success. Patient was able to say "good morning" once more awake. Per PT, patient unable to follow commands or do much for PT. At this time, PT will try again tomorrow if patient is more awake and able to follow commands. This nurse educated PT if patient was not able to participate, to complete passive range of motion with patient. Patient was repositioned to left side with RUE elevated with pillows.
--- NOTE | 2022-04-17 12:00 | NUR ---
Patient repositioned in bed to supine position with BUE elevated (right>left) due to swelling. Patient opens eyes with verbal and physical stimuli, but still has no interest in taking ice chips. Patient continues to speak small words ocassionally when prompted. Son, Aly, at bedside. No further needs at this time. Personal items and call light within reach for family.
--- NOTE | 2022-04-17 14:13 | NUR ---
Patient repositioned to left side, brief change, lamont care. Placed foam on coccyx due to open skin areas. Desiten cream put on red lamont areas and nystatin powder put on groin for redness. Overall perineal redness has improved greatly since admission. Patient tolerated turning well with minimal groan. Patient able to follow request to hold up head while changing pillow cases. Son at bedside. Personal items and call light witin reach of family. No further needs at this time.
--- NOTE | 2022-04-17 14:59 | NUR ---
Patient moving more in bed, attempting to reach for kwan catheter. Patient appeared to be uncomfortable. Catheter readjusted and pain medications given. Patient now resting more comfortably and no longer reaching for catheter or displaying facial grimacing. Will continue to monitor. Personal items and call light within reach. Sister and son at bedside.
--- NOTE | 2022-04-17 16:09 | NUR ---
PATIENT RESTING IN BED, REPOSITIONED TO SUPINE. PATIENT NOT PULLING AT CATHETER AT THIS TIME. FAMILY HAVE LEFT THE ROOM. PATIENT OPENS EYES TO VERBAL STIMULI. PATIENT ABLE TO SCRATCH HIS HEAD USING HIS LEFT ARM WITHOUT DIFFICULTY. PATIENT APPEARS COMFORTABLE WITH NO SIGNS OF PAIN OR DISTRESS. PERSONAL ITEMS AND CALL LIGHT WITHIN REACH. DOOR AND CURTAIN OPEN FOR EASIER MONITORING WHILE FAMILY HAS STEPPED OUT.
--- NOTE | 2022-04-17 18:05 | NUR ---
Patient has been relaxed and comfortable throughout shift. PRN pain medication only given once for mild groin irritation. Patient has been turned q2 hours with no distress. Patient has remained afebrile. Patient is also more awake during the day and able to speak single words at times. No BM today.
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
--- NOTE | 2022-04-17 20:17 | NUR ---
REPORT RECEIVED FROM DAY SHIFT RN. PT IS LYING IN BED W/ CALL LIGHT AT BEDSIDE. NO SIGNS OF DISTRESS. VSS. RESPIRATIONS EVEN AND UNLABORED.
--- NOTE | 2022-04-17 21:30 | NUR ---
PT'S SON IS SITTING AT BEDSIDE AT THIS TIME. PT REPOSITIONED W/ EXT ASSIST. FA[facility]BANKS PATENT. TOLERATING IVF. VSS. RESPIRATIONS EVEN AND UNLABORED. NO DISTRESS NOTED. CALL LIGHT AT HAND. WILL CONT TO MONITOR.
--- NOTE | 2022-04-18 00:09 | NUR ---
PT REPOSITIONED IN BED W/ EXT ASSIST. VSS. RESPIRATIONS EVEN AND UNLABORED. PRN PAIN MEDICATION ADMINISTERED- SEE EMAR FOR ADDITIONAL INFO. CALL LIGHT AT HAND. PT'S SISTER IS AT BEDSIDE AT THIS TIME. TOLERATING IVF AND ABX ORDERED. MAGDI PATENT. WILL CONT TO MONITOR.
--- NOTE | 2022-04-18 02:45 | NUR ---
PT RESTING IN BED W/ INCREASED RESTLESSNESS AND MOANING OUT. PRN PAIN MEDICATION ADMINISTERED ORDERED- SEE EMAR FOR ADDITIONAL INFO. VSS. RESPIRATIONS EVEN AND UNLABORED. CALL LIGHT AT HAND. PT'S SISTER REMAINS AT BEDSIDE THROUGHOUT THE NIGHT. FA[facility]BANKS PATENT W/ ADEQUATE OUTPUT. WILL CONT TO MONITOR.
--- NOTE | 2022-04-18 04:35 | NUR ---
PT IS RESTING IN BED AND APPEARS COMFORTABLE AT THIS TIME. REPOSITIONED W/ MAX ASSIST. CALL LIGHT AT HAND. FA[facility]BANKS PATENT. VSS. NO DISTRESS NOTED. WILL CONT TO MONITOR.
--- NOTE | 2022-04-18 06:13 | NUR ---
PT RESTING IN BED- APPEARS COMFORTABLE. LABS DRAWN. TOLERATING IVF. FA[facility]BANKS PATENT. NO SIGNS OF DISTRESS NOTED. VSS. RESPIRATIONS EVEN AND UNLABORED. CALL LIGHT WITHIN REACH. PT'S SON AND SISTER ARE AT BEDSIDE THIS AM. WILL CONT TO MONITOR.
--- NOTE | 2022-04-18 07:25 | NUR ---
REPORT RECEIVED, CARE OF PT ASSUMED AT THIS TIME.
--- NOTE | 2022-04-18 07:50 | NUR ---
SKY CAP IN ROOM AT THIS TIME TO SPEAK WITH PT'S SISTER.
--- NOTE | 2022-04-18 08:30 | NUR ---
ASSESS AND BED BATH COMPLETED. PT GROANS AND WINCES WITH TURNING. SKIN IN JERICA AREA AND COCCYX IMPROVED. CANDE ANY NYSTATIN APPLIED. PT REPOSITIONED ONTO LEFT SIDE. BLISTERS ON RIGHT ARM DRAINING CLEAR FLUID. ARMS ELEVATED ON PILLOWS. PT HAS GENERALIZED DEPENDENT EDEMA TO ARMS, LEGS AND THIGHS. LUNGS SOUND COARSE IN BILATERAL LUNG BASES. HEART RATE IN THE 80S AT REST. SISTER AT BEDSIDE. DISCUSSED PLAN OF CARE. ALL QUESTIONS ANSWERED. WILL CONTINUE TO MONITOR.
--- NOTE | 2022-04-18 09:04 | NUR ---
DR MORALES AT PT BESDIE AT THIS TIME TO COMPLETE ASSESSMENT AND DISCUSS PLAN OF CARE WITH PTS SISTER LEANDER. ALL QUESTIONS ANSWERED. PLAN OF CARE FOR DAY ESTABLILSHE.D IB FLUDIS AND ABX NOW INFUSING. PT OPENS EYES AND RESPONDS YES WHEN ASKED IF HE IS IN PAIN. PRN MEDICATION FOR PAIN TO BE ADMINISTERED. CALL LIGHT WITHIN REACH. SISTER REMAINS AT PT BEDSIDE. WILL CONTINUE TO MONITOR.
--- NOTE | 2022-04-18 09:36 | NUR ---
SPEECH THERAPIST IN ROOM AT THIS TIME TO DO SWALLOW EVALUATION.
--- NOTE | 2022-04-18 11:14 | NUR ---
PT REPOSITIONED ON TO RIGHT SIDE. PT APPEARS TO BE MORE COMFORTABLE AFTER RECIEVING PAIN MEDICATION. RESPIRATIONS EVEN AND UNLABORED. CALL LIGHT WITHIN REACH. WILL CONTINUE TO MONITOR.
--- NOTE | 2022-04-18 12:28 | NUR ---
PATIENT RESTING IN BED, WOKE TO VOICE. VITALS AND I&OS CHARTED. CALL LIGHT IN EASY REACH
--- NOTE | 2022-04-18 12:30 | NUR ---
Called and spoke with Jeny Laguna and [facility] as I sent pts chart yesterday. Both decline this pt as he will require more care than their staff can provide at this time. I called and spoke with Mary Willis and she knows this pt, but also states he will require more care than they can staff. Pt also has medicaid and cannot pay out of pocket. He will have to go to a facility that accepts medicaid.
--- NOTE | 2022-04-18 13:21 | NUR ---
PT ASLEEP, DID NOT DISTURB.
--- NOTE | 2022-04-18 14:00 | NUR ---
Called and spoke with [facility], asked if they would be willing to take this pt. She states only if pt is a 1 person assist and at baseline. They would also take this pt if he was hospice. I will speak with pts sister.
--- NOTE | 2022-04-18 14:47 | NUR ---
PT REPOSITIONED IN BED. CERAMICS ARTIST AT BEDSIDE SHAVING PT. PT'S SISTER AT BEDSIDE.
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
--- NOTE | 2022-04-18 16:24 | NUR ---
GLASS INSTALLER IN ROOM SPEAKING WITH PT'S DAUGHTER.
--- NOTE | 2022-04-18 16:40 | NUR ---
Attempted to contact hospice and they have closed for the day. Updated by Dr. Eugene he feels this pt is hospice appropriate. He will document and I will send the chart to hospice in the am.
--- NOTE | 2022-04-18 18:08 | NUR ---
PT BLOOD SUGAR WNL, NO INSULIN GIVEN. PT PROVIDED PAIN MEDICATION AND REPOSITIONED IN BED. SISTER REMAINS AT BEDSIDE. WILL CONTINUE TO MONITOR.
--- NOTE | 2022-04-18 19:20 | NUR ---
BEDSIDE REPORT FROM ADEEL CHRISTOPHER, PT'S SISTER LEANDER MONSALVE AT BEDSIDE, WE HAVE MET PRIOR OVER THE COURSE OF PT'S STAY THIS RN ADMITTED PT. SISTER SAID SHE FEELS GOOD ABOUT GOING HOME TO GET SOME SLEEP TONIGHT WITH CURRENT STAFF. NO NEW CONCERNS, SHE IS HOPEFUL THAT ST EVALUATION TOMORROW WILL SHOW IMPROVMENT. PT IS RESTING QUIETLY IN BED, EYES CLOSED, NO DISTRESS NOTED, RR REGULAR AT 18 BPM.
--- NOTE | 2022-04-18 23:27 | NUR ---
PT RESTING IN BED, NO DISTRESS NOTED, PT HAS RELAXED BODY POSITION, NO GRIMACE
--- NOTE | 2022-04-19 00:23 | NUR ---
PT REPOSITIONED, HE VERBALIZED "NO" WHEN ASKED IF HE HAD PAIN. PT RESTING IN RELAXED POSITION, NO NEW CONCERNS.
--- NOTE | 2022-04-19 01:17 | NUR ---
ROUNDING IN PT ROOM, PT RESTING IN BED ON LEFT SIDE, NO GRIMACE OR CRYING OUT, EYES CLOSED RR REGULAR AT 20 BREATHS. NO NEW CONCERNS
--- NOTE | 2022-04-19 02:22 | NUR ---
IN PT'S ROOM TO CHECK 0200 BLOOD SUGAR AND TO GIVE PAIN MEDS. PT SLEEPING, CBG LOW, 68. 25ML DEXTROSE GIVEN PER PRN ORDERS. PT CONTINUES TO SLEEP.
--- NOTE | 2022-04-19 04:36 | NUR ---
PT RESTIGN IN BED, EYES CLOSED, PT RELAXED POSITION, NO GRIMACE, BLOOD SUGAR CHECK AT THIS TIME SEE LABS
--- NOTE | 2022-04-19 06:03 | NUR ---
PT'S SISTER LEANDER MONSALVE ARRIVED TO PT ROOM AT THIS TIME. UPDATE PROVIDED, NO NEW ISSUES OR CONCERNS.
--- NOTE | 2022-04-19 07:30 | NUR ---
REPORT RECIEVED, CARE OF PT ASSUMED AT THIS TIME. PT RESTING IN BED. BREATHING EVEN AND UNLABORED. PT SISTER REMAINS AT BEDSIDE.
--- NOTE | 2022-04-19 08:15 | NUR ---
SPEECH THERAPIST IN ROOM FOR SECOND CONSULT. PT AGAIN FAILED SWALLOW EXAM.
--- NOTE | 2022-04-19 08:30 | NUR ---
CALL PLACED TO LIBERTY AT [facility]. LIBERTY STATES THEY HAVE AN HOSPICE OPENING FOR Saturday04/24/22. REFERRAL FAXED FOR REVIEW. NIA CHRISTOPHER UPDATE.
--- NOTE | 2022-04-19 09:00 | NUR ---
ASSESSMENT COMPLETED. AM CARES PROVIDED BY WING COVERER. PT REPOSITIONED IN BED. ORAL CARE PROVIDED. PT DENIES PAIN. URINE OUTPUT CONTNUES TO BE ADEQUATE. LUNGS SOUND DIMINISHED IN BILATERAL BASES. SPO2 = 94% ON ROOM AIR. PT DENIES PAIN. LONG ACTING INSULIN HELD AT THIS TIME FOR LOW BLOOD SUGARS DURING THE NOC. PLAN OF CARE FOR DAY ESTABLISHED. CALL LIGHT WITHIN REACH. WILL CONTINUE TO MONITOR.
--- NOTE | 2022-04-19 10:08 | NUR ---
HOSPICE CONSULT FOR THIS PATIENT. HE REMAINS NPO. RD WILL BE AVAILABLE IF NEEDED.
--- NOTE | 2022-04-19 10:33 | NUR ---
DR BALES IN ROOM TO ASSESS PT AT THIS TIME. PLAN ESTABLISHED MAKE PT A MED SURG PT AT THIS TIME.
--- NOTE | 2022-04-19 11:00 | NUR ---
MEET WITH PATIENT SISTER LEANDER MONSALVE. QUESTIONS ANSWERED REGARDING LOGISTIC OF RETURN THE PATIENT TO [facility], IF ACCEPTED BY HOSPICE. ADVISED THAT I WILL SPEAK WITH FABIOLA KAMINSKI REGARDING MOVING THE PATIENT CURRENT BED OUT OF HIS ROOM SO THAT A HOSPITAL BED CAN BE PLACED. DISCUSSED EVALUATION BY LOAN BROKER. NO FURTHER QUESTIONS FROM LEANDER MONSALVE AT THIS TIME. ADVISED CASE MANAGEMENT WILL ADVISE HER WHEN WE RECIEVE CONFIRMATION FROM [facility] AND [facility].
--- NOTE | 2022-04-19 11:33 | NUR ---
PT REPOSITIONED IN BED ONTO LEFT HIP. PT DOES NOT RESPOND WHEN ASKED IF HE IS IN PAIN, BUT DOES HAVE TEARS IN HIS EYES. LUNGS DIMINISHED IN BILATERAL LUNG BASES BUT WORK OF BREATHING AND SPO2 WNL. DAUGHTER BACK AT BEDSIDE. WILL CONTINUE TO MONITOR.
--- NOTE | 2022-04-19 15:22 | NUR ---
PATIENT REPOSITIONED ONTO RIGHT SIDE, PILLOWS SUPPORTING BOTH ARMS.
--- NOTE | 2022-04-19 15:45 | NUR ---
ASSESSMENT COMPLETED AND PT REPOSITIONED IN BED. NYSTATIN POWDER ON JERICA AREA. ARMS PLACED ON PILLOW TO HELP WITH EDEMA. WELL TOLERATED BY PT. NO REPORTS OF PAIN. ORAL CARE PROVIDED. WILL CONTINUE TO MONITOR.
--- NOTE | 2022-04-19 17:06 | NUR ---
ORAL CARE PROVIDED. PT DENIES PAIN. IV FLUIDS CONTINUE TO INFUSE.
--- NOTE | 2022-04-19 17:54 | NUR ---
PT GIVEN PRN PAIN MEDICATION. PT IS TEARFUL AND MOANING. STATES "YES" WHEN ASKED IF HE IS IN PAIN. 1 UNIT OF INSULIN GIVEN PER SLIDING SCALE. SISTER REMAINS AT PT BEDSIDE.
--- NOTE | 2022-04-19 22:06 | NUR ---
PT RESTING QUIELTY IN BED EYES CLOSED ALERT TO RN TALKING. HE IS RELAXED IN POSTURE, NO GRIMACE. NO NEW CONCERNS HIS ACCU CHECK 121, FENTANYL PATCH 12.5MCG PLACED TO LEFT CHEST NO NEW CONCERNS AT THIS TIME
--- NOTE | 2022-04-20 02:15 | NUR ---
PT RESTING IN BED SLEEPING/SNORING, PT ALERT TO RN AT BEDSIDE FOR BLOOD SUGAR CHECK, PT IS RELAXED POSITION NO GRAONING OR GRIMACE, ORAL CARE PROVIDED, PT REPOSITONED, NO NEW CONCERNS, V/S STABLE
--- NOTE | 2022-04-20 04:02 | NUR ---
PT RESTING IN BED EYES CLOSED NO DISTRESS NOTED, NONEW CONCERNS, RESP RATE 18 BREATHS/MIN. PT REPOSITIONED.
--- NOTE | 2022-04-20 07:17 | NUR ---
BEDSIDE REPORT RECEIVED FROM JONATHAN CHRISTOPHER, ALL QUESTIONS ANSWERED.
--- NOTE | 2022-04-20 07:30 | NUR ---
PT MOVED TO ROOM 122 VIA BED. FAMILY AT BEDSIDE. IV FLUIDS RUNNING. CALL LIGTH IN REACH.
--- NOTE | 2022-04-20 08:13 | NUR ---
SPOKE WITH MORENO AT [facility], PATIENT HAS BEEN ACCEPTED AND SCHEDULED FOR Saturday04/24/22.
--- NOTE | 2022-04-20 08:30 | NUR ---
MORNING ASSESSMENT COMPLETE. PT AWAKE, UNABLE TO ASSESS ORIENTATION. ANSWERS YES/NO TO SIMPLE QUESTIONS. PT TURNED TO LEFT SUPPORTED WITH PILLOWS. ARMS 3+ EDEMA, ELEVATED ON PILLOWS. RIGHT ARM BLISTERS AND WEEPING. PICC LINE INFUSING FLUSHED WITH 20ML NS, ARM CIRCUMFERENCE 31CM AT PICC INSERTION SITE. FENTANYL PATCH TO LEFT CHEST. DRESSING ON COCYXX CDI. FAIRBANKS DRAINING CLEAR YELLOW URINE. RIGHT SIDED WEAKNESS REPORTED BY SISTER CHRONIC FROM PAST CVA. CALL LIGHT IN REACH.
--- NOTE | 2022-04-20 09:55 | NUR ---
PATIENT LYING IN BED, BLODD SUGAR, VITALS AND I/O'S COMPLETED. SISTER IN ROOM, CALL LIGHT WITHIN REACH.
--- NOTE | 2022-04-20 10:00 | NUR ---
PT TURNED TO LEFT SIDE WITH PILLOWS AND TWO PERSON ASSIST. PILLOWS UNDER BOTH ARMS AND LEGS FOR COMFORT. SISTER AT BEDSIDE. CALL LIGHT IN REACH.
--- NOTE | 2022-04-20 11:20 | NUR ---
PT RESTING IN BED WITH EYES CLOSED, RESPIRATIONS EVEN AND UNLABORED. AWAKENS EASILY. STATES "NO" WHEN ASKED IF HE HAS PAIN.
--- NOTE | 2022-04-20 12:30 | NUR ---
PT RESTING QUIETLY IN BED, EYES CLOSED, AWAKENS EASILY. STATES "NO" WHEN ASKED IF HE HAD PAIN.
--- NOTE | 2022-04-20 14:12 | NUR ---
PATIENT RESTING IN BED COMFORTABLY. VITALS, BLOOD SUGAR, AND I/O'S COMPLETED. FAIRBANKS DRAINED AND DOCUMENTED. ROTATED ONTO LEFT SIDE. NO OTHER NEEDS AT THIS TIME. CALL LIGHT WITHIN REACH.
--- NOTE | 2022-04-20 14:41 | NUR ---
Pt resting in bed with eyes closed, awakens easily, denies pain at this time.
--- NOTE | 2022-04-20 15:22 | NUR ---
PT RESTING IN BED, AWAKENS EASILY. APPEARS COMFORTABLE, FLACC 0. FAIRBANKS DRAINING CLEAR YELLOW URINE. PICC LINE INFUSING.
--- NOTE | 2022-04-20 16:40 | NUR ---
PT RESTING IN BED WITH EYES CLOSED, RESPIRATIONS EVEN AND UNLABORED. AWAKENS EASILY. DENIES PAIN AT THIS TIME. BLISTERS TO RIGHT ARM WEEPING, MEAGAN CHANGED, ELEVATED ON PILLOWS.
--- NOTE | 2022-04-20 17:10 | NUR ---
PT RESTING WITH EYES CLOSED, AWAKENS EASILY. FLACC 0. SISTER AT BEDSIDE. CALL LIGHT IN REACH.
--- NOTE | 2022-04-20 18:29 | NUR ---
PT TURNED TO RIGHT SIDE. ARMS ELEVATED ON PILLOWS. VITAL AND I$O'S COMPLETED. PT AWAKENS TO VOICE AND WITH MOVEMENT. APPEARS COMFORTABLE AFTER TURNING, FLACC 0. SISTER AT BEDSIDE. CALL LIGHT IN REACH.
--- NOTE | 2022-04-20 19:40 | NUR ---
Patient sleeping in bed. Sister at bedside. Call light within reach. Bed alarm in place.
--- NOTE | 2022-04-21 00:48 | NUR ---
Patient sleeping in bed. Call light within reach. Bed alarm in place.
--- NOTE | 2022-04-21 04:01 | NUR ---
Uneventful shift. Unable to determine patient's orientation leve. Alert. Answers "yes, no" questions in whisper. Unable to follow most commands. Moves left limbs spontaneously. Unable to move right limbs. Repositioned w/assist of staff. On RA. Lung sounds dim in bases. Respirs unlabored, even. HR sounds reg. General +2 pitting edema. Fluid blisters on right arm. Some of these sites are open, weeping. Infusing fluids at rate of 85 through PICC. Able to draw back blood from PICC. Oral care completed w/repositiong. Appears to be in no discomfort. Has remained in bed. Bowel sounds active. Chowdhury patent. Draining dark yellow, clear urine.
--- NOTE | 2022-04-21 08:50 | NUR ---
RN IN ROOM TO ASSESS PT AND ADMINISTER SCHEDULED MEDICATIONS. PT REPOSISTIONED IN BED WITH BOTH ARMS ELEVATED ON PILLOWS. LEFT ARM DRAINING SMALL SEROUS FLUID FROM BLISTERS AND OPEN WEAPING AREAS. LEFT ARM PAINFUL WITH PASSIVE MOVEMENT TO REPOSISTION. ORAL CARE PROVIDED. FA[facility]KS CARE PROVIDED AND NYSTATIN POWDER APPLIED TO GROIN AND SCROTUM AREA - EXCORIATIONS IMPROVING. [facility] PATENT AND DRAINING CLEAR YELLOW URINE QUANITY SUFFICENT. HEEL PROTECTORS IN PLACE. PICC LINE TOLERATING IVF WITHOUT DIFFICULTY, SECOND LUMEN HEP LOCKED. PT STATES "YES" TO BEING COMFORTABLE UPON LEAVING ROOM. SISTER AT BEDSIDE.
--- NOTE | 2022-04-21 09:19 | NUR ---
PT BECKONING THIS RN PASSES ROOM. PT UNABLE TO VERBALIZE REQUEST BUT STATE "YES" WHEN ASKED IF HE IS HAVING PAIN. PT UNABLE TO STATE WHERE PAIN IS. 3/10 FLACC SCORE. SEE MAR FOR MEDICATION GIVEN. PT MAKING NOISES AND MOVEMENTS. NO ADDITIONAL NEEDS AT THIS TIME. BED RAILS UP. CALL LIGHT WITHIN REACH. PTS PRIMARY RN UPDATED.
--- NOTE | 2022-04-21 09:30 | NUR ---
RN ROUNDING ON PT - RESTING COMFORTABLY IN BED. PT COMPLAINED OF PAIN AROUND FA[facility]B[place]KS AREA TO OTHER RN AND PRN MORPHINE WAS NOTED TO BE ADMINISTERED ON EMAR.
--- NOTE | 2022-04-21 09:57 | NUR ---
SANJU from Dr. Branch to place order for urojet for penile discomfort due to kwan catheter. Will update primary RN.
--- NOTE | 2022-04-21 10:06 | NUR ---
PT IN BED RESTING. VITALS AND IS AND OS COMPLETE. NURSE ENTER IN ROOM. PATIENT REPOS ONTO LEFT SIDE. NO NEEDS. CALL LIGHT WITHIN REACH.
--- NOTE | 2022-04-21 10:09 | NUR ---
PT REPOSISTIONED TO LEFT SIDE, DENIES PAIN.
--- NOTE | 2022-04-21 11:33 | NUR ---
PT ASLEEP IN BED WITH HOB ELEVATED. RR EVEN AND UNLABORED. NO DISTRESS NOTED.
--- NOTE | 2022-04-21 11:35 | NUR ---
REPORT RECEIVED FROM NIGHT RN - PT RESTING IN BED AWAKE WITH SISTER AT BEDSIDE. STATES "YES" WHEN ASKED IF HE WAS COMFORTABLE. SISTER DENIES NEEDS AT THIS TIME.
--- NOTE | 2022-04-21 13:32 | NUR ---
RN ROUDNING ON PT - PT AWAKE IN BED, PUSHES RN AWAY UPON APPROACHING STATES "GET OUT OF HERE". PT INITIALLY ANSWERS "NO" WHEN ASKED IF IN PAIN, THEN LATER RESPONDS "YES" WHEN ASKED IF HE NEEDED PAIN MEDICATION. ORAL MORPHINE ADMINISTERED. FA[facility]KS CATH PATENT, LINE EMPTIED. IVF REPLACED, SITE WNL. PT NOW RESTING ASLEEP, RR EVEN AND UNLABORED.
--- NOTE | 2022-04-21 15:03 | NUR ---
pt repositioned to right side with pillows, skin care provided on back, alyvn on buttock c/d/i. no further skin breakdown noted. clean linen placed under. kwan patent but painful at insertion site, urojet used to provide relief - pt apears to be pulling on it.
--- NOTE | 2022-04-21 16:35 | NUR ---
RN IN ROOM TO ROUND ON PT - SISTER AT BEDSIDE. PT STATES "NO" WHEN ASKED IF IN PAIN. ORAL CARE PREFORMED. FAIRBANKS CATH REPOSITIONED TO DECREASE PRESSURE, UROJET APPEARS TO HAVE IMPROVED PAIN AT [facility].
--- NOTE | 2022-04-21 18:45 | NUR ---
PT REPOSISTIONED IN BED TO BACK. UROJET APPLIED TO FA[facility]BANKS AREA IN RESPONSE TO PT CONTINUING TO GRAB AT AREA WITH LEFT HAND. PT STATES "NO" WHEN ASKED IF HE NEEDS PAIN MEDICATION. SISTER AT BEDSIDE DENIES FURTHER NEEDS.
--- NOTE | 2022-04-21 20:00 | NUR ---
Patient appeared uncomfortable at shift report. Patient's sister alerted nurses to patient's discomfort. PRN roxicodone given. Patient now resting comfortably in bed.
--- NOTE | 2022-04-22 02:25 | NUR ---
Patient sleeping in bed. Bed alarm in place.
--- NOTE | 2022-04-22 06:57 | NUR ---
Uneventful shift. Patient responds in limited manner to questions. Mostly answers "yes, no" questions. Unable to determine orientation. Does not use call light. Remains very weak on left side, immobile on right side. Lungs dim in bases. On RA. Respirs even, unlabored. Bowel sounds hypoactive. No BM on shift. Has remained in bed. HR sounds irreg. Sister at bedside now. Pain has been well controlled w/PRN sublingual morphine.
--- NOTE | 2022-04-22 07:44 | NUR ---
IN ROOM TO RECHECK POC BLOOD GLUCOSE, LAB DRAW AT 0405 RESULT OF 495. POC BLOOD GLUCOSE AT THIS TIME 147. PT APPEARS TO BE RESTING COMFORTABLY, FLACC 0. SISTER AT BEDSIDE.
--- NOTE | 2022-04-22 09:05 | NUR ---
MORNING ASSESSMENT COMPLETE. PT PROVIDED PRN MORPHINE FOR FLACC OF 3 AND ANTICIPATION OF MORNING CARES. PT ABLE TO ANSWER SIMPLE YES OR NO QUESTIONS AT TIMES. ALERT AND AWAKE UPON ENTERING ROOM. UNABLE TO ASSESS ORIENTATION. PT TRACKS THIS RN WITH EYES. LUNG SOUNDS CLEAR ON RA, HYPOACTIVE BOWEL TONES. FA[facility]KS DRAINING CLEAR YELLOW URINE, QS. PICC LINE ARM CIRCUMFERENCE 31 CM, GOOD BLOOD RETURN AND FLUSHES EASILY. SISTER AT BEDSIDE, DENIES FURTHER NEEDS AT THIS TIME.
--- NOTE | 2022-04-22 10:48 | NUR ---
BED BATH, LINEN CHANGE, ORAL AND JERICA CARE PROVIDED AT THIS TIME.
--- NOTE | 2022-04-22 12:33 | NUR ---
Pt resting in bed with eyes closed, awakens easily. Appears comfortable, FLACC 0.
--- NOTE | 2022-04-22 13:45 | NUR ---
PT REPOSITIONED TO RIGHT SIDE WITH PILLOWS, ARM ELEVATED ON PILLOWS. PT TOLERATED MOVEMENT WELL, FLACC 0.
--- NOTE | 2022-04-22 15:57 | NUR ---
PT REPOSTITIONED, TOELRATED WELL, FLACC 0. BILATERAL ARM EDEMA, ELEVATED ON PILLOWS. BLISTERS ON RIGHT ARM OPEN AND WEEPING. SISTER AT BEDSIDE. CALL LIGHT IN REACH.
--- NOTE | 2022-04-22 17:56 | NUR ---
PICC LINE DRESSING CHANGED USING STERILE PROCEDURE. INSERTION SITE WNL, 5CM EXPOSED. PT TOLERATED WELL.
--- NOTE | 2022-04-22 19:10 | NUR ---
SHIFT REPORT RECIEVED FROM BERNIE CHRISTOPHER. PT RESTING IN BED. RR EVEN, UNLABORED. IV FLUIDS INFUSING PER ORDER. SISTER AT BEDSIDE. PT REPOSITIONED. NO NEEDS AT THIS TIME. CALL LIGHT IN REACH, RAILS UP.
--- NOTE | 2022-04-22 20:20 | NUR ---
ASSESSMENT COMPLETED. PT ORIENTED TO PERSON AND PLACE. LUNGS CLEAR, HEART TONES REGULAR, ABD SOFT, NONTENDER. PT HAS CHRONIC NUMBNESS X4 EXTREMITIES. PICC LINE WNL, FLUSHED WELL WITH GOOD BLOOD RETURN, IV FLUIDS INFUSING PER ORDER. SACRUM WOUNDS COVERED. RUE WOUNDS OPEN TO AIR. TRACE EDEMA IN BLE AND 3+ EDEMA IN BUE. SCHEDULED MEDS PROVIDED. ORAL AND [facility] CARE PROVIDED. NO OTHER NEEDS AT THIS TIME SISTER IN ROOM. RAILS UP, CALL LIGHT IN REACH, CURTAIN OPEN.
--- NOTE | 2022-04-22 23:00 | NUR ---
PT REPOSITIONED. NO OTHER NEEDS AT THIS TIME. CALL LIGHT IN REACH.
--- NOTE | 2022-04-22 23:10 | NUR ---
NEW BAG OF IV FLUIDS PROVIDED. PT REPOSITIONED. NO OTHER NEEDS AT THIS TIME. CALL LIGHT IN REACH.
--- NOTE | 2022-04-23 01:10 | NUR ---
PT APPEARS RESTLESS, PRN PAIN MED PROVIDED. PT REPOSITIONED. IV FLUIDS INFUSING PER ORDER. NO OTHER NEEDS. CALL LIGHT IN REACH, RAILS UP, CURTAIN OPEN.
--- NOTE | 2022-04-23 02:17 | NUR ---
SCHEDULED MED PROVIDED. ASSESSMENT COMPLETED, NO CHANGES. PT REPOSITIONED. NO OTHER NEEDS AT THIS TIME. CALL LIGHT IN REACH.
--- NOTE | 2022-04-23 03:59 | NUR ---
PT REPOSITIONED. IV FLUIDS INFUSING PER ORDER. PT RR EVEN, UNLABORED. CALL LIGHT IN REACH, CURTAIN OPEN.
--- NOTE | 2022-04-23 06:06 | NUR ---
VS AND I&O COMPLETED. ORAL AND FA[facility]KS CARE PROVIDED. PT MOANING AND RESTLESS, PRN PAIN MED PROVIDED. PT REPOSITIONED. NO OTHER NEEDS AT THIS TIME. CALL LIGHT IN REACH, RAILS UP, CURTAIN OPEN.
--- NOTE | 2022-04-23 07:02 | NUR ---
SCHEDULED MED PROVIDED. PT HAS A GURGLE DURING EXPIRATION AND HAS NOT BEEN ABLE TO CLEAR THE FLUIDS IN HIS THROAT WELL BUT DOES NOT APPEAR TO BE IN RESPIRATORY DISTRESS. SISTER IN ROOM. CALL LIGHT IN REACH.
--- NOTE | 2022-04-23 07:05 | NUR ---
Report received from Rivka CHRISTOPHER. Pt resting in bed with eyes closed. RR 20, no apparent distress, sister at bedside. Will continue plan of care. Call light in reach.
--- NOTE | 2022-04-23 08:44 | NUR ---
Scheduled medications administered and assessment complete. Pt resting in bed, increased secretions noted and SL atropine drops administered. PICC line WNL, cont. IVF infusing WNL, second port flushes well and brisk blood return noted. 3+ edema to BUE, skin weeping, arms elevated for comfort. Heel protectors in place, pillows repositioned under legs. Discussed POC with pt sister Natalee Hernandez, all questions answered.
--- NOTE | 2022-04-23 11:00 | NUR ---
BOTH NARES SWABBED FOR COVID-19 WITHOUT COMPLICATION.
--- NOTE | 2022-04-23 11:14 | NUR ---
Pt medicated with 5mg oral morphine, new bag IVF hung. Pt's sister requests to visit with MD when convenient. Oral care provided.
--- NOTE | 2022-04-23 12:00 | NUR ---
REPORT RECIEVED FROM CANDI WALLIS. PT APPEARS COMFORTABLE, RESTING WITH EYES CLOSED.
--- NOTE | 2022-04-23 13:22 | NUR ---
PT MOVED TO NEGATIVE PRESSURE ROOM PER PROTOCOL. PT SISTER IN ROOM.
--- NOTE | 2022-04-23 14:44 | NUR ---
TURNED PT WITH ASSISTANCE OF DALTON ZARAGOZA. PT MOANED BUT WAS ABLE TO VERBALIZED THAT IT WILL CALM DOWN AND HE DOES NOT NEED PAIN MEDS ATT. ALSO DECLINED ATROPINE DROPS FOR EXCESSIVE SECRETIONS. PROPPED EDEMATOUS ARM ON PILLOWS.
--- NOTE | 2022-04-23 16:00 | NUR ---
RECVD MESSAGE FROM FABIOLA AT [facility], STILL OKAY TO DISCHARGE PATIENT BACK ON HOSPICE THOUGH HE IS NOW COVID +. CONFIRMED THAT PATIENTS REGULAR BED HAS BEEN MOVED AND A HOSPITAL BED WILL BE DELIVERED IN THE AM. PATIENT SISTER LEANDER MONSALVE NOTIFIED OF ONGOING TRANSFER COORDINATION. SHE STATES SHE WILL BE HERE IN THE MORNING TO FOLLOW PATIENT BACK TO FACILITY. DR. SOLIZ NOTIFIED OF PLANS FOR DISCHARGE.
--- NOTE | 2022-04-23 16:37 | NUR ---
PT SISTER STATES THAT PT IS MOANING AND APPEARS PAINFUL.
--- NOTE | 2022-04-23 18:20 | NUR ---
PT SISTER THOUGHT HE WAS GETTING MORE GURGLY AND WAS NOT RESPONDING TO HER. ASSESSED PT AND HE RESPONDED APPROPRIATLY TO QUESTIONS. DID AGREE TO TAKE SOME ATROPINE DROPS FOR SECRETIONS. DENIES PAIN.
[2022-04-23] MEDS ORDERED: BENADRYL25 MG PO (19:00)
[2022-04-23] MEDS ORDERED: MORPHINE S100 MG/5 M SL (19:01)
[2022-04-23] MEDS ORDERED: FENTANYL1 EAC4 TD (19:02)
[2022-04-23] MEDS ORDERED: ATROPINE SULFATE2 ML SL (19:03)
--- NOTE | 2022-04-23 19:28 | NUR ---
REPORT RECEIVED FROM DAY SHIFT RN. PT LYING IN BED RESTING WITH EYES CLOSED. RESPIRATIONS EVEN. SISTER AT BEDSIDE. NO NEEDS AT THIS TIME. CALL LIGHT IN REACH.
--- NOTE | 2022-04-23 20:15 | NUR ---
PT MOANING IN BED WITH OCCASIONAL GRIMACE. PRN FOR PAIN ADMIN PER EMAR. PT MOSTLY NON VERBAL, ANSWERS "NO" TO SIMPLE QUESTIONS. FACE WASHED. ORAL CARE DONE. OCCASIONAL COUGH NOTED. PT ABLE TO CLEAR SECRETIONS AT THIS TIME. RR 20, EVEN AND NON LABORED. 2PA TO REPOSITION IN BED. PITTING EDEMA NOTED BUE. BOTH ARMS ELEVATED. WEEPING BLISTERS NOTED ON RIGHT ARM. HEEL PROTECTORS IN PLACE. [facility] PATENT WITH 300 ML CLEAR YELLOW URINE. [facility] CARE COMPLETE. SISTER LEFT FOR THE EVENING. CURTAIN OPEN SLIGHTLY FOR EASY OBSERVATION.
--- NOTE | 2022-04-23 23:28 | NUR ---
2229 ROUNDING NOTE. PT AWAKE IN BED RESPONDING TO SIMPLE QUESTIONS. REPEATS "PAIN PILL." PRN FOR PAIN ADMIN PER EMAR. FACE WASHED WITH WARM CLOTH AND ORAL CARE DONE. 2PA TO REPOSITION IN BED WITH PILLOWS. PT REPORTS HE IS COMFORTABLE. PICC LINE IN NAVEED PULSATILE FLUSH WITH NS AND HEP LOCKED PER ORDER. BRISK BLOOD RETURN NOTED IN BOTH LUMENS. BUE ELEVATED ON PILLOWS. CALL LIGHT IN REACH.
--- NOTE | 2022-04-24 01:32 | NUR ---
PT LYING IN BED WITH EYES OPEN MOANING SOFTLY. PRN FOR PAIN ADMIN PER EMAR. 2PA TO REPOSITION. PT MORE CONVERSIVE DURING CARES. SPEECH SLURRED. ORAL CARE DONE. PT DENIES FURTHER NEEDS. CURTAIN OPEN FOR OBSERVATION. CALL LIGHT IN REACH.
--- NOTE | 2022-04-24 02:42 | NUR ---
PT IN BED RESTING WITH EYES CLOSED. RESPIRATIONS EVEN. CURTAIN OPEN FOR OBS. CALL LIGHT IN REACH.
--- NOTE | 2022-04-24 04:37 | NUR ---
TWO PERSON ASSIST TO REPOSITION PT WITH PILLOWS. PT MOANING SOFTLY WITH OCCASIONAL GRIMACE. PRN FOR PAIN ADMIN PER EMAR. ORAL CARE COMPLETE.
--- NOTE | 2022-04-24 07:00 | NUR ---
PT AWAKE IN BED MOANING SOFTLY. 2PA TO REPOSITION IN BED WITH PILLOWS. PRN FOR PAIN ADMIN PER EMAR. ORAL CARE DONE. FACE WASHED. SISTER AT BEDSIDE AT THIS TIME. NO NEEDS. CALL LIGHT IN REACH.
--- NOTE | 2022-04-24 07:26 | NUR ---
REPORT FROM COLE ALVARENGA RN.
--- NOTE | 2022-04-24 07:58 | NUR ---
SPOKE W PTS SISTER IN [facility] OUTSIDE OF PT ROOM. SHE REQ DROPS TO HELP RELIEVE PTS COUGH. RN NOTIFIED.
--- NOTE | 2022-04-24 08:10 | NUR ---
Pt was unable to sign IMM letter due to his stroke. Stated understanding.
--- NOTE | 2022-04-24 08:30 | NUR ---
Called and confirmed with Dinora at [facility] they are aware pt is + with [facility] and she states they are and plan to take him back on Hospice today. Asked what time she would like to have pt and she states the bed will not be delivered until 10:00. I will call hospice and discuss with them and then schedule EMS transport. Spoke with Dr. Mosley and she will complete orders.
--- NOTE | 2022-04-24 08:40 | NUR ---
Called and spoke with Aicha from Hospice. Bed will arrive at 10:00 and their nurse will arrive at 10:00 also and will see pts until pt arrives. I will call and request EMS at 10:00 to transport.
--- NOTE | 2022-04-24 09:45 | NUR ---
Called and scheduled EMS transport for around 10:30. Nonemergent transport sheet completed and signed by Dr. Mosley. Orders for dc received from Dr. Mosley and faxed to
--- NOTE | 2022-04-24 10:01 | NUR ---
CATHETER CARE DONE, JERICA CARE DONE, ALLEVYN REMOVED FROM COCCYX, EXCORIATED COCCYX ARE CLEANED, NEW ALLEVYN IN PLACE. EXCORIATIONS ARE DRY AND APPEAR TO BE HEALING. PATIENT REPOSITIONED UP IN BED, ARMS ARE ELEVATED WITH PILLOWS AND NEW CHUX UNDER FOR ARM WEEPING. PATIENT IS TO BE TRANSPORTED BACK HOME TO [facility] AT 1030 BY NON-EMERGENT EMS. SISTER IS BACK IN ROOM AT THIS TIME, CASE MANAGEMENT HAS UPDATED THE SISTER.
--- NOTE | 2022-04-24 10:27 | NUR ---
REPORT TO LEONOR, NURSE AT [facility]
--- NOTE | 2022-04-24 10:40 | NUR ---
EMS here, called Dinora and let her know pt will arrive shortly. She received my faxed orders. Denies other needs. Hospice will provide a comfort kit.
--- NOTE | 2022-04-24 13:59 | NUR ---
I UNDERSTAND THAT PT IS TO BE DC'D TODAY BACK TO [facility]. WILL FOLLOW NEEDED
== END 2022-04-24 10:45 | disposition hospice, inpatient (51) | DRG 871 ==
LOC: ED 15:53 → CCU 15:55 → MS 04-15 12:08
PROVIDERS: ADMIT Internal Medicine; ATTEND Internal Medicine
PROC: 3E033XZ Introduction of Vasopressor into Peripheral Vein, Percutaneous Approach (ICD-10-PCS; 2022-04-15)
PROC: 02HV33Z Insertion of Infusion Device into Superior Vena Cava, Percutaneous Approach (ICD-10-PCS; 2022-04-15)
PROC: 3E03329 Introduction of Other Anti-infective into Peripheral Vein, Percutaneous Approach (ICD-10-PCS; principal; 2022-04-15 13:00)
DX: A41.9 Sepsis, unspecified organism (principal); N17.0 Acute kidney failure with tubular necrosis; G93.41 Metabolic encephalopathy; J18.9 Pneumonia, unspecified organism; U07.1 COVID-19; R65.21 Severe sepsis with septic shock; I48.92 Unspecified atrial flutter; Z51.5 Encounter for palliative care; Z66 Do not resuscitate; E87.5 Hyperkalemia; I10 Essential (primary) hypertension; R34 Anuria and oliguria; E78.5 Hyperlipidemia, unspecified; D64.9 Anemia, unspecified; F39 Unspecified mood [affective] disorder; E11.649 Type 2 diabetes mellitus with hypoglycemia without coma; Z86.73 Personal history of transient ischemic attack (TIA), and cerebral infarction without residual deficits; Z88.1 Allergy status to other antibiotic agents; Z88.8 Allergy status to other drugs, medicaments and biological substances; Z79.4 Long term (current) use of insulin; Z79.01 Long term (current) use of anticoagulants; Z79.899 Other long term (current) drug therapy
CPT/HCPCS: 36415; 36430; 36569; 51702; 71045; 80048; 80053; 81001; 82570; 83036; 83690; 84132; 84300; 84550; 85025; 86850; 86900; 86901; 86922; 87502; 93005; 93010; 94644; 99285-25; A9270; C1751; C9113; C9803; J1650; J1815; J2060; J2405; J2543; J3010; J3243; J7030; J7042; J7070; J7121; P9016; U0003